=== PATIENT | male | born 1970 | race Caucasian/White ===

== ENCOUNTER 2017-02-17 05:24 | Inpatient (IN) | payer OTHER ==
[2017-02-14 10:47] VITALS: BMI 27.5
[2017-02-17] VITALS (24 sets, daily range): BP systolic 106–136; BP diastolic 55–79; PULSE 66–96; RESP 11–21; Ht 172.7 cm; Wt 88.8 kg
[~2017-02-17] VITALS: Ht 172.7 cm; Wt 88.8 kg
[2017-02-17] MEDS ORDERED: SUCCINYLCHOLINE CHLORIDE 100 MG/5 ML SYG IV ONE (06:43)
[2017-02-17] MEDS ORDERED: ROPIVACAINE 0.5 % 30 ML VIAL ONE ×2 (06:43→07:30)
[2017-02-17] MEDS ORDERED: PROPOFOL 20 ML ONE (06:43)
[2017-02-17] MEDS ORDERED: ROCURONIUM 50 MG INJ ONE (06:43)
[2017-02-17] MEDS ORDERED: LIDOCAINE 2% (SDV) 5 ML INJ ONE (06:43)
[2017-02-17] MEDS ORDERED: MIDAZOLAM 1 MG/ML 2 ML INJ ONE (06:43)
--- NOTE | 2017-02-17 06:44 | HPN ---
Date/Time of Note Date/Time of Note DATE: 02/17/17 TIME: 06:44 Interval H&P Admission Note Pt. seen H&P reviewed: No system changes CASTILLO BHATTI MD Feb 17, 2017 06:44
[2017-02-17] MEDS ORDERED: FENTAnyl 50 MCG/ML VIAL ONE (07:21)
[2017-02-17] MEDS ORDERED: CEFAZOLIN 1 GM INJ ONE ×2 (07:25→10:39)
[2017-02-17] MEDS ORDERED: GELATIN SIZE 100 SPONGE ONE (07:30)
[2017-02-17] MEDS ORDERED: POVIDONE IODINE 10% 28.4 GM OINT ONE (07:31)
[2017-02-17] MEDS ORDERED: THROMBIN 5000 UNIT VIAL ONE ×2 (07:31→10:36)
[2017-02-17] MEDS ORDERED: DEXAMETHASONE 4 MG/ML 1 ML INJ ONE (08:15)
[2017-02-17] MEDS ORDERED: ONDANSETRON 4 MG INJ ONE (08:15)
[2017-02-17] MEDS ORDERED: FAMOTIDINE 20 MG INJ ONE (08:15)
[2017-02-17] MEDS ORDERED: POLYMYXIN/BACITRACIN 1L IRRIG ONE (08:56)
[2017-02-17] MEDS ORDERED: HYDROmorphONE 2 MG/ML SYG ONE (09:12)
[2017-02-17] MEDS ORDERED: FENTAnyl 50 MCG/ML VIAL IV PRN ×3 (10:30)
[2017-02-17] MEDS ORDERED: HYDROmorphONE (0.2 MG/ML) 10ML SYG IV PRN ×2 (10:30)
[2017-02-17] MEDS ORDERED: ONDANSETRON 4 MG INJ IV PRN ×2 (10:30→12:30)
[2017-02-17] MEDS ORDERED: DIPHENHYDRAMINE 50 MG INJ IV PRN (10:30)
[2017-02-17] MEDS ORDERED: MEPERIDINE 25 MG INJ IV PRN (10:30)
[2017-02-17] MEDS ORDERED: PROCHLORPERAZINE 10 MG INJ IV PRN (10:30)
[2017-02-17] MEDS ORDERED: CA CHLORIDE 10% 10 ML SYRINGE ONE (10:36)
[2017-02-17] MEDS: SOD CHLORIDE 0.9% 1,000 ML IV SCH ×2 (12:09→22:09)
--- NOTE | 2017-02-17 12:09 | OPPN ---
Date/Time of Note Date/Time of Note DATE: 02/17/17 TIME: 12:05 Operative Report Preoperative Diagnosis Right subtalar arthritis Postoperative Diagnosis Same Operation/Procedure Performed Right arthroscopic subtalar arthrodesis PRP injection, allograft Provider: CASTILLO BHATTI MD offset assistant press operator: ROBBY WOODARD MD Anesthesia: general, other Estimated blood loss: 10 - 50 ml's Specimens none Grafts/Implants 7.3mm synthes cannulated screw x 2 allograft and PRP Complications: None CASTILLO BHATTI MD Feb 17, 2017 12:08
[2017-02-17] MEDS: HYDROmorphONE (0.2 MG/ML) 10ML SYG IV PRN ×3 (12:25→12:44)
[2017-02-17] MEDS ORDERED: DIPHENHYDRAMINE 25 MG CAP PO PRN (12:30)
[2017-02-17] MEDS ORDERED: CEFAZOLIN 1 GM INJ IV SCH (12:30)
[2017-02-17] MEDS ORDERED: BISACODYL 10 MG SUPP PR PRN (12:30)
[2017-02-17] MEDS: HYDROmorphONE 0.2 MG/ML PCA IV SCH ×2 (12:31→21:02)
--- NOTE | 2017-02-17 14:20 | RADRPT ---
PROCEDURE: Intraoperative imaging of the right ankle with fluoroscopy. CLINICAL INDICATION: Right ankle pain. Intraoperative. TECHNIQUE: 9 images of the right ankle were obtained in the operating room with an image intensifi er. No radiologist was in attendance. Fluoroscopy time is 0.8 minutes. COMPARISON: No prior study is available for comparison. FINDINGS: Images demonstrate fusion of the tibiotalar joint with 2 large cannulated screws. IMPRESSION: 1. Intraoperative imaging of the right ankle. RPTAT: QQ .Caden Bhatt MD, MD Date Time Electronically viewed and signed by .Caden Bhatt MD, on 02/17/2017 14:20 .R/
[2017-02-17] MEDS: CEFAZOLIN 1 GM/50 ML (PMX) 50 ML IVPB SCH ×2 (14:24→21:19)
[2017-02-17] MEDS: SENNA/DOCUSATE NA (8.6MG/50MG) TAB PO SCH (21:19)
[2017-02-18] VITALS: BP 133/81; RESP 20
[2017-02-18] MEDS: HYDROmorphONE 0.2 MG/ML PCA IV SCH (05:00)
[2017-02-18] MEDS: CEFAZOLIN 1 GM/50 ML (PMX) 50 ML IVPB SCH (06:07)
--- NOTE | 2017-02-18 06:58 | PN ---
Date/Time of Note Date/Time of Note DATE: 02/18/17 TIME: 06:56 Assessment/Plan VTE Prophylaxis VTE Prophylaxis Intervention: ambulation, other (Xarelto) Lines/Catheters IV Catheter Type (from Nrsg): Saline Lock Urinary Cath still in place: No Assessment/Plan Chief Complaint/Hosp Course POD1 s/p right subtalar fusion Problems: Assessment/Plan 1. Pain control: D/c NET MANAGER and wean to PO pain medications 2. PT/OT, NWB RLE 3. DVT PPX: Xarelto, ambulation, SCD's 4. Urinary retention, likely secondary to surgery, if not improved, can do bladder scan/cath 5. Dispo: Pending pain control, ability to urinate and PT clearance Subjective 24 Hr Interval Summary Subjective hx not possible: other (Patient reports problem with urination. ) Exam/Review of Systems Vital Signs Vitals Vital Signs Date Time Temp Pulse Resp B/P Pulse Ox O2 Delivery O2 Flow Rate FiO2 02/18/17 00:00 98.5 81 20 133/81 93 02/17/17 16:20 Nasal Cannula 2.0 Intake and Output 02/17/17 02/17/17 02/18/17 15:00 23:00 07:00 Intake Total 150 ml 840 ml 840 ml Output Total 450 ml 600 ml Balance 150 ml 390 ml 240 ml Exam Constitutional: alert, oriented Respiratory: normal air movement Cardiovascular: regular rate and rhythm Extremities: other (RLE with cast in place, clean and dry. Able to wiggle toes , brisk capillary refill and grossly intact sensation. ) Medications Medications Current Medications Senna/Docusate Sodium (Senokot-S) 1 tab BID PO Last administered on 02/17/17t 21:19; Admin Dose 1 TAB; Start 02/17/17 at 21:00 Magnesium Hydroxide (Milk Of Mag) 30 ml HS PO ; Start 02/19/17 at 21:00 Bisacodyl 10 mg 10 mg DAILY PRN [place] CONSTIPATION; Start 02/17/17 at 12:30 Sodium Chloride (NS) 1,000 ml @ 100 mls/hr Q10H IV ; Start 02/17/17 at 12:09 Oxycodone/ Acetaminophen (Percocet (5/ 325)) 2 tab Q4H PRN PO PAIN; Start 02/17 at 12:30 Morphine Sulfate (morphine) 5 mg Q4H PRN IV PAIN LEVEL 7-10; Start 02/17/17 at 12:30 Ondansetron HCl (Zofran Inj) 4 mg Q4H PRN IV NAUSEA AND/OR VOMITING; Start at 12:30 Diphenhydramine HCl (Benadryl) 25 mg Q4H PRN PO ITCHING; Start 02/17/17 at 12: 30 Hydromorphone HCl SEE PROTOCOL Q4PCA IV Last administered on 02/18/17 05:00; Admin Dose 6 MG; Start 02/17/17 at 12:30 Cefazolin Sodium (Ancef 1 Gm/50 ml (Pmx)) 50 ml @ 100 mls/hr Q8 IVPB Last administered on 02/18/17 06:07; Admin Dose 100 MLS/HR; Start 02/17/17 at 14:00 ; Stop 02/19/17 at 06:29 CASTILLO BHATTI MD Feb 18, 2017 06:58
[2017-02-18] MEDS: SOD CHLORIDE 0.9% 1,000 ML IV SCH ×2 (08:09→18:09)
[2017-02-18] MEDS: OXYCODONE/ACETAMINOPHEN (5/325) TAB PO PRN ×4 (08:49→23:25)
[2017-02-18] MEDS: SENNA/DOCUSATE NA (8.6MG/50MG) TAB PO SCH ×2 (08:49→20:47)
[2017-02-18] MEDS: morphine 10 MG INJ IV PRN ×2 (14:44→20:50)
[2017-02-18] MEDS: RIVAROXABAN 10 MG TABLET PO SCH (17:56)
[2017-02-18 19:39] VITALS: BP 120/64; RESP 16
[2017-02-19] MEDS: SOD CHLORIDE 0.9% 1,000 ML IV SCH ×2 (03:30→14:09)
[2017-02-19] MEDS: OXYCODONE/ACETAMINOPHEN (5/325) TAB PO PRN ×4 (03:59→17:58)
--- NOTE | 2017-02-19 06:53 | PN ---
Date/Time of Note Date/Time of Note DATE: 02/19/17 TIME: 06:51 Assessment/Plan VTE Prophylaxis VTE Prophylaxis Intervention: ambulation, SCD's, other Lines/Catheters IV Catheter Type (from Nrsg): Peripheral IV Urinary Cath still in place: No Assessment/Plan Chief Complaint/Hosp Course POD2 s/p right subtalar fusion Problems: Assessment/Plan - PT NWB RLE - elevate RLE as much as possible - pain control - reg diet - d/c home today after PT - f/u with Dr. Bhatti next week Subjective 24 Hr Interval Summary Free Text/Dictation No acute events. Pain in RLE, better with meds. anticipating discharge today. Exam/Review of Systems Vital Signs Vitals Vital Signs Date Time Temp Pulse Resp B/P Pulse Ox O2 Delivery O2 Flow Rate FiO2 02/18/17 20:00 Nasal Cannula 2.0 02/18/17 19:39 98.4 66 16 120/64 97 Intake and Output 02/18/17 02/18/17 02/19/17 15:00 23:00 07:00 Intake Total 50 ml 1140 ml Output Total 1350 ml Balance 50 ml -210 ml Exam RLE: elevated, cast intact. df/pf toes, wwp, sens intact dorsal/plantar foot. Medications Medications Current Medications Senna/Docusate Sodium (Senokot-S) 1 tab BID PO Last administered on 02/18/17 20:47; Admin Dose 1 TAB; Start 02/17/17 at 21:00 Magnesium Hydroxide (Milk Of Mag) 30 ml HS PO ; Start 02/19/17 at 21:00 Bisacodyl 10 mg 10 mg DAILY PRN [place] CONSTIPATION; Start 02/17/17 at 12:30 Sodium Chloride (NS) 1,000 ml @ 100 mls/hr Q10H IV ; Start 02/17/17 at 12:09 Oxycodone/ Acetaminophen (Percocet (5/ 325)) 2 tab Q4H PRN PO PAIN Last administered on 02/19/17 03:59; Admin Dose 2 TAB; Start 02/17/17 at 12:30 Morphine Sulfate (morphine) 5 mg Q4H PRN IV PAIN LEVEL 7-10 Last administered on 02/18/17 20:50; Admin Dose 5 MG; Start 02/17/17 at 12:30 Ondansetron HCl (Zofran Inj) 4 mg Q4H PRN IV NAUSEA AND/OR VOMITING; Start at 12:30 Diphenhydramine HCl (Benadryl) 25 mg Q4H PRN PO ITCHING; Start 02/17/17 at 12: 30 CASTILLO BHATTI MD Feb 19, 2017 06:53
[2017-02-19] MEDS: morphine 10 MG INJ IV PRN (07:44)
[2017-02-19 08:00] VITALS: BP 115/77; RESP 19
[2017-02-19] MEDS: SENNA/DOCUSATE NA (8.6MG/50MG) TAB PO SCH (08:51)
[2017-02-19] MEDS ORDERED: DIAZEPAM 5 MG TAB PO PRN (10:00)
[2017-02-19] MEDS: RIVAROXABAN 10 MG TABLET PO SCH (17:07)
[2017-02-19] MEDS ORDERED: MAGNESIUM HYDROXIDE 30ML CUP PO SCH (21:00)
--- NOTE | 2017-03-12 02:03 | OPR ---
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 POSTOPERATIVE DIAGNOSES: 1. 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 2. Retained foreign body, suture anchor in the subtalar joint. 3. Fibrosis and scarring. OPERATION: 1. Redo arthroscopy of the right subtalar joint with soft tissue distraction. 2. Extensive debridement of the subtalar joint. 3. Removal of foreign body suture. 4. Insertion of platelet-rich plasma with Ignite into the fusion site to facilitate healing. 5. Arthrodesis of the right subtalar joint with two 7.30 cannulated screws. 6. Use of fluoroscopy to verify position and alignment of the guide pins and screws. 7. Short-leg cast. Extremely complex, difficult procedure because the patient's subtalar joint was extremely fibrosed and very difficult enter arthroscopically. The anatomy was quite altered, landmarks were gone, and we had to use fluoroscopy to even verify were in the subtalar joint. Because of the complex nature of this surgery, an additional 60 minutes of operative time was necessary (22). SURGEON: Anjel Escobar MD TISSUE TECHNOLOGIST: Jacob Nguyen MD ANESTHESIA: General with popliteal block. TOURNIQUET TIME: 2 hours and 25 minutes. OPERATIVE PROCEDURE: The patient was taken to the operating room and placed supine. Satisfactory popliteal block was given and satisfactory general anesthesia was administered. The right thigh was secured in the thigh medina and secured to the bed. The right leg was prepped and draped in the usual manner. The tourniquet was inflated to 250 mmHg. Distraction applied. The subtalar joint was so fibrosed and stiff, it was extremely difficult to enter the subtalar joint. We were able to establish a central portal and with great difficulty, using fluoroscopy, we established the posterolateral portal. Then under fluoroscopy with great difficulty, we established the anterolateral portal. We then put the arthroscope in with a shaver, started debriding all the soft tissue off the sinus tarsi, all the arthritic cartilage, which was quite extensive, in the subtalar joint. This was all removed with a shaver and with different angled curettes starting from anterior and going all the way to the posterior aspect of the talus and calcaneus. We alternated portals to get this done. Once all the arthritic articular cartilage had been removed, a bur was used to remove approximately 1 mm of bone to good bleeding surfaces on the calcaneus and talus, including the sinus tarsi region. Multiple drill holes were made with 0.45 K-wire in the area. Multiple holes were made with an osteotome. After the entire joint had been prepared, incision was made medial to the anterior tibial tendon and dissection carried down to the subcutaneous tissue. The capsule was opened and the talar neck was identified. Using the fluoroscope, we verified where we wanted to put our guide pin and temporarily put it in a little bit. We then inserted Ignite mix with PRP in the subtalar joint. We then advanced our guide pin using the Vector drill guide to come out the heel across the subtalar joint. Under fluoroscopy, good position alignment was noted in the guide pin. The length was measured, the hole was partially drilled retrograde, and then a screw inserted up to heel, a 7.3 AO cannulated screw type. Excellent fixation was obtained. A second guide pin was inserted parallel and more superior across the subtalar joint, fixating it well with drill and screw was inserted. When we were done, there was no subtalar motion whatsoever. Final fluoroscopic view showed good position and alignment of the screws and of the subtalar fusion. The tourniquet was released, bleeders were coagulated, the wounds were irrigated with antibiotic solution. The wounds were closed with 2-0 and 3-0 undyed Vicryl and 3-0 black nylon. A compression dressing applied, as well as a short-leg cast in neutral position. At the end of the procedure, sponge and needle count was correct. The patient tolerated the procedure well and the cast was split in the recovery room. TISSUE TECHNOLOGIST ORTHOPEDIC SURGEON WAS USED AT MY REQUEST. THE TISSUE TECHNOLOGIST HELPED WITH DISTRACTING THE SUBTALAR JOINT, MANIPULATING IT, AND MOST IMPORTANTLY, THE TISSUE TECHNOLOGIST HELPED WITH INSERTING THE SCREWS ACROSS THE SUBTALAR JOINT WHILE I HELD THE JOINT REDUCED. WITHOUT A SKILLED ORTHOPEDIC SURGEON TISSUE TECHNOLOGIST ASSISTING ME, THIS COULD NOT HAVE BEEN PERFORMED. HE SHOULD BE COMPENSATED APPROPRIATELY. Dictated By: Anjel Escboar MD /[email or web address] /Document#: [id number]
== END 2017-02-19 19:30 | disposition home or self-care (01) | DRG 494 ==
LOC: REC 05:24 → MS1 13:40
PROVIDERS: ADMIT Orthopaedic Surgery; ATTEND Orthopaedic Surgery
PROC: 0SP Lower Joints, Removal (ICD-10-PCS; 2017-02-17)
PROC: 0JDQ3ZZ Extraction of Right Foot Subcutaneous Tissue and Fascia, Percutaneous Approach (ICD-10-PCS; 2017-02-17)
PROC: 0SGF44Z Fusion of Right Ankle Joint with Internal Fixation Device, Percutaneous Endoscopic Approach (ICD-10-PCS; principal; 2017-02-17 07:00)
DX: M19.171 Post-traumatic osteoarthritis, right ankle and foot (principal); M24.674 Ankylosis, right foot
CPT/HCPCS: 86999; 97116; 97162; 97530; C1713; J0690; J1100; J1170; J2250; J2270; J2405; J2795; J3010; J7030; J7999